=== PATIENT | female | born 2000 ===

== ENCOUNTER 2021-07-28 00:47 | Emergency (ER) | payer BC ==
[~2021-07-28] VITALS: Ht 170.2 cm; Wt 1456.0 kg
[2021-07-28] MEDS ORDERED: TRAMADOL HCL50 MG PO (01:03)
[2021-07-28] MEDS ORDERED: NAPROXEN375 MG PO (01:03)
[2021-07-28] MEDS ORDERED: AMOXICILLIN500 MG PO (01:03)
[2021-07-28 01:19] VITALS: BP 135/84
== END 2021-07-28 01:13 | disposition home or self-care (01) | DRG 159 ==
LOC: ED 00:47
DX: K01.1 Impacted teeth (principal); E11.9 Type 2 diabetes mellitus without complications